=== PATIENT | female | born 1975 | race American Indian/Alaskan Native ===

== ENCOUNTER 2016-12-14 00:16 | Emergency (ER) | payer MEDICAID ==
[2016-12-14 01:30] LABS: Basophils % (Auto) 0.7 % (0.0-1.8); Eosinophils % (Auto) 1.3 % (0.0-4.3); Hematocrit 34.3 % (30.3-42.9); Hemoglobin 11.4 gm/dl (10.1-14.3); Mean Corpuscular HGB Conc 33 % (30-34); Mean Corpuscular Hemoglobin 31 pg (28-32); Mean Corpuscular Volume 91 fl (79-97); Platelet Count 209 K/mm3 (140-440); Red Blood Count 3.75 M/mm3 (3.65-5.03); Red Cell Distribution Width 13.7 % (13.2-15.2); White Blood Count 7.9 K/mm3 (4.5-11.0)
--- NOTE | 2016-12-14 04:52 | Ultrasound Report ---
FINAL REPORT PROCEDURE: US OB \T\lt; = 14 WEEKS FETUS TECHNIQUE: Real-time transabdominal sonography of the uterus, placenta, amniotic fluid, adnexa, and fetus was performed with image documentation. Measurements were obtained to determine age/size. M-mode Doppler was used to document heartbeat. CPT 85485 HISTORY: VAG BLEEDING/ COMPARISON: No prior studies are available for comparison. FINDINGS: There is no intrauterine or ectopic . Uterus measures 10.3 x 5.1 x 5.7 centimeters. The endometrium is thickened at 16 millimeters. There is complex fluid in the endometrial cavity. There is complex fluid in the endocervical canal which could be blood clot. Right ovary measures 2.7 x 1.6 x 2.9 centimeters. Left ovary measures 2.8 x 2.2 x 3 centimeters. There is a 2.5 centimeter left ovarian cyst. IMPRESSION: There is no intrauterine or ectopic . There is complex fluid in the endocervical and endometrial cavity suggesting blood clot.
--- NOTE | 2016-12-14 04:52 | Ultrasound Report ---
FINAL REPORT PROCEDURE: US OB TRANSVAGINAL TECHNIQUE: Real-time transvaginal l sonography of the uterus, placenta, amniotic fluid, adnexa, and fetus was performed with image documentation. Measurements were obtained to determine age/size. M-mode Doppler was used to document heartbeat. HISTORY: VAG BLEEDING/ COMPARISON: No prior studies are available for comparison. FINDINGS: There is no intrauterine or ectopic . Uterus measures 10.3 x 5.1 x 5.7 centimeters. The endometrium is thickened at 16 millimeters. There is complex fluid in the endometrial cavity. There is complex fluid in the endocervical canal which could be blood clot. Right ovary measures 2.7 x 1.6 x 2.9 centimeters. Left ovary measures 2.8 x 2.2 x 3 centimeters. There is a 2.5 centimeter left ovarian cyst. IMPRESSION: There is no intrauterine or ectopic . There is complex fluid in the endocervical and endometrial cavity suggesting blood clot.
--- NOTE | 2016-12-14 04:59 | Emergency Department Report ---
ED Female HPI - General Chief complaint: Vaginal Bleeding Stated complaint: MISCARRIAGE Time Seen by Provider: 12/14/16 04:58 Source: patient, RN notes reviewed Mode of arrival: Ambulatory Limitations: No Limitations - History of Present Illness Initial comments: This is a 41-year-old female who was previously unknown to me. She is 6 , para 5. Last menstrual period is September. Her private senior contracts manager is "[facility]." Patient reports that she was diagnosed with a spontaneous miscarriage 11/27/2016. She was offered surgery versus medication versus watch and wait approach by her senior contracts manager. She chose the latter. She presents to the ER today with lower abdominal cramping and vaginal bleeding. No headache, neck pain, chest pain, shortness of breath, irritative/ obstructive urinary symptoms. No dizziness or lightheadedness. The bleeding is constant. it does not have exacerbating or relieving factors. MD Complaint: vaginal bleeding -: Gradual Location: labia Severity: moderate Quality: cramping Consistency: constant Improves with: none Worsens with: none Are you Now?: Yes Associated Symptoms: vaginal bleeding, abdominal pain - Related Data Sexually active: Yes Allergies Allergy/AdvReac Type Severity Reaction Status Date / Time No Known Allergies Allergy Verified 12/14/16 00:23 ED Review of Systems ROS: Stated complaint: MISCARRIAGE Other details as noted in HPI Constitutional: denies: malaise Eyes: denies: vision change ENT: denies: epistaxis Respiratory: denies: cough Cardiovascular: denies: chest pain Gastrointestinal: abdominal pain Genitourinary: abnormal menses Musculoskeletal: denies: as per HPI Skin: denies: lesions Neurological: denies: weakness Psychiatric: denies: depression ED Past Medical Hx - Past Medical History Previous Medical History?: No - Surgical History Past Surgical History?: No - Social History Smoking Status: Never Smoker Substance Use Type: None ED Physical Exam - General Limitations: No Limitations General appearance: alert, in no apparent distress - Head Head exam: Present: atraumatic, normocephalic - Eye Eye exam: Present: normal appearance, EOMI. Absent: nystagmus - ENT ENT exam: Present: normal exam, normal orophraynx, mucous membranes moist, normal external ear exam - Neck Neck exam: Present: normal inspection, full ROM - Respiratory Respiratory exam: Present: normal lung sounds bilaterally. Absent: respiratory distress, wheezes, rales, rhonchi, stridor, chest wall tenderness, accessory muscle use, decreased breath sounds, prolonged expiratory - Cardiovascular Cardiovascular Exam: Present: regular rate, normal rhythm, normal heart sounds. Absent: systolic murmur, diastolic murmur, rubs, gallop - GI/Abdominal GI/Abdominal exam: Present: soft, normal bowel sounds. Absent: distended, tenderness, guarding, rebound, rigid, pulsatile mass - External exam: Present: normal external exam Speculum exam: Present: normal speculum exam, vaginal bleeding Bi-manual exam: Present: other (escorted by KAYA montaño). Absent: cervical motion tendernes, adnexal tenderness, adnexal mass - Extremities Exam Extremities exam: Present: normal inspection, full ROM, normal capillary refill. Absent: pedal edema, joint swelling, calf tenderness - Back Exam Back exam: Present: normal inspection, full ROM. Absent: tenderness, CVA tenderness (R), CVA tenderness (L), muscle spasm, paraspinal tenderness, vertebral tenderness - Neurological Exam Neurological exam: Present: alert, oriented X3, normal gait, other (Extraocular movements intact. Tongue midline. No facial droop. Facial sensation intact to light touch in the V1, V2, V3 distribution bilaterally. 5 and 5 strength in 4 extremities.. Sensation is intact to light touch in 4 extremities.). Absent : motor sensory deficit - Psychiatric Psychiatric exam: Present: normal affect, normal mood - Skin Skin exam: Present: warm, dry, intact, normal color. Absent: rash ED Course Vital Signs 12/14/16 12/14/16 00:23 05:03 Temperature 98.6 F 98.5 F Pulse Rate 88 91 H Respiratory 20 18 Rate Blood Pressure 122/58 Blood Pressure 103/64 [Left] O2 Sat by Pulse 100 100 Oximetry - Reevaluation(s) Reevaluation #1: 12/14/16 05:24 During gynecologic examination, large clots noted the extruded from the cervical os, these were aggressively suctioned out using a Yankauer suction catheter. ED Medical Decision Making - Lab Data Result diagrams: 12/14/16 01:09 Vital Signs 12/14/16 12/14/16 00:23 05:03 Temperature 98.6 F 98.5 F Pulse Rate 88 91 H Respiratory 20 18 Rate Blood Pressure 122/58 Blood Pressure 103/64 [Left] O2 Sat by Pulse 100 100 Oximetry Lab Results 12/14/16 12/14/16 12/14/16 Range/Units 01:09 01:09 01:09 WBC 7.9 (4.5-11.0) K/mm3 RBC 3.75 (3.65-5.03) M/mm3 Hgb 11.4 (10.1-14.3) gm/dl Hct 34.3 (30.3-42.9) % MCV 91 (79-97) fl MCH 31 (28-32) pg MCHC 33 (30-34) % RDW 13.7 (13.2-15.2) % Plt Count 209 (140-440) K/mm3 Lymph % (Auto) 16.7 (13.4-35.0) % [place] % (Auto) 6.9 (0.0-7.3) % Eos % (Auto) 1.3 (0.0-4.3) % Baso % (Auto) 0.7 (0.0-1.8) % Lymph # 1.3 (1.2-5.4) K/mm3 [place] # 0.5 (0.0-0.8) K/mm3 Eos # 0.1 (0.0-0.4) K/mm3 Baso # 0.1 (0.0-0.1) K/mm3 Seg Neutrophils % 74.4 H (40.0-70.0) % Seg Neutrophils # 5.9 (1.8-7.7) K/mm3 HCG, Quant 1126 H (0-4) mIU/mL Blood Type A POSITIVE Antibody Screen Negative - Radiology Data Radiology results: report reviewed, image reviewed Pelvic ultrasound demonstrates no i intrauterine or ectopic . His complex fluid in the endocervical and endometrial cavity, suggesting blood clot. - Medical Decision Making Differential diagnosis: Inevitable miscarriage Assessment and plan: 41-year-old female who reports sonographically confirmed spontaneous miscarriage earlier on this month, now experiencing the natural history of miscarriage, including bleeding and clots. She is afebrile, with reassuring vital signs, she is Rh+. She will be managed expectantly. She is suitable to follow-up with her outpatient senior contracts manager. Critical care attestation.: If time is entered above; I have spent that time in minutes in the direct care of this critically ill patient, excluding procedure time. ED Disposition Clinical Impression: Miscarriage Disposition: DC-01 TO HOME OR SELFCARE Is pt being admited?: No Does the pt Need Aspirin: No Condition: Stable Instructions: Spontaneous Miscarriage (ED) Additional Instructions: Rest and avoid heavy lifting. Avoid strenuous physical activity. Do not engage in sexual activity until cleared by your senior contracts manager. Follow up with her senior contracts manager within the next week. Return to the ER right away with new pain, worsening pain, migration of pain, fevers, chills, lethargy, irritability , projectile vomiting, bleeding more than 2 pads soaked through and through per hour, dizziness, lightheadedness, passing out. Referrals: PRIMARY CAREMD [Primary Care Provider] - 3-5 Days [facility] [Provider Group] - 3-5 Days
[2016-12-14 05:05] VITALS: BP 103/64
[2016-12-14 06:16] LABS: Bacteria,Urine 1+ /HPF (Negative); Bilirubin,Urine NEG (Negative); Blood,Urine LG (Negative); Ketones,Urine NEG (Negative); Leukocyte Esterase,Urine TR (Negative); Mucus,Urine FEW /HPF; Nitrite,Urine NEG (Negative); Urobilinogen,Urine < 2.0 mg/dL (<2.0)
[2016-12-14 06:18] LABS: RBC,Urine > 182.0 /HPF (0.0-6.0)
== END 2016-12-14 05:40 | disposition home or self-care (01) ==
LOC: ED 00:16
DX: O03.9 Complete or unspecified spontaneous abortion without complication (principal); Z3A.00 Weeks of gestation of pregnancy not specified
CPT/HCPCS: 36415; 76801; 76817; 81001; 84702; 85025; 86850; 86900; 86901; 99284

== ENCOUNTER 2018-04-05 22:56 | Emergency (ER) | payer MEDICAID ==
[2018-04-05 23:42] LABS: Basophils # (Auto) 0.1 K/mm3 (0.0-0.1); Basophils % (Auto) 1.4 % (0.0-1.8); Eosinophils # (Auto) 0.2 K/mm3 (0.0-0.4); Eosinophils % (Auto) 2.4 % (0.0-4.3); Hemoglobin 12.8 gm/dl (10.1-14.3); Lymphocytes # (Auto) 2.4 K/mm3 (1.2-5.4); Lymphocytes % (Auto) 34.7 % (13.4-35.0); Mean Corpuscular HGB Conc 35 % (30-34); Mean Corpuscular Volume 90 fl (79-97); Monocytes # (Auto) 0.6 K/mm3 (0.0-0.8); Monocytes % (Auto) 8.5 % (0.0-7.3); Platelet Count 219 K/mm3 (140-440); Red Blood Count 4.09 M/mm3 (3.65-5.03); Red Cell Distribution Width 13.4 % (13.2-15.2)
--- NOTE | 2018-04-06 00:18 | Emergency Department Report ---
HPI - General Chief Complaint: Vaginal Bleeding Time Seen by Provider: 04/06/18 00:01 - HPI HPI: 42-year-old [place] female presents to the emergency department with the complaint of concern for possible miscarriage. Patient started having some pelvic cramping and brownish vaginal discharge starting earlier today. The cramping pain is mild. She found out shortly after Sherrie that she was from a home test and then a repeat positive test at a clinic. Her last menstrual cycle was February 19. With this she is . She follows with [facility]. She denies any other past medical history. She has not taken anything for her symptoms prior to arrival. ED Past Medical Hx - Past Medical History Previous Medical History?: No - Surgical History Past Surgical History?: No - Social History Smoking Status: Never Smoker Substance Use Type: None ED Review of Systems ROS: Stated complaint: POSSIBLY MISCARRIAGE Other details as noted in HPI Comment: All other systems reviewed and negative Constitutional: denies: chills, fever Eyes: denies: eye pain, eye discharge, vision change ENT: denies: ear pain, throat pain Respiratory: denies: cough, shortness of breath, wheezing Cardiovascular: denies: chest pain, palpitations Gastrointestinal: abdominal pain. denies: nausea, vomiting Genitourinary: discharge. denies: dysuria Musculoskeletal: denies: back pain, arthralgia Skin: denies: rash, lesions Neurological: denies: headache, weakness Physical Exam - Physical Exam Vital Signs: Vital Signs 04/05/18 04/05/18 23:07 23:20 Temperature 98.6 F 98.6 F Pulse Rate 80 78 Respiratory 18 18 Rate Blood Pressure 143/83 Blood Pressure 143/83 [Left] O2 Sat by Pulse 99 99 Oximetry Physical Exam: GENERAL: The patient is well-developed well-nourished. HEENT: Normocephalic. Atraumatic. Patient has moist mucous membranes. EYES: Extraocular motions are intact. NECK: Supple. Trachea is midline. CHEST/LUNGS: Clear to auscultation. There is no respiratory distress noted. HEART/CARDIOVASCULAR: Regular. There is no tachycardia. There is no obvious murmur. ABDOMEN: Abdomen is soft, nontender. Patient has normal bowel sounds. There is no abdominal distention. SKIN: Skin is warm and dry. NEURO: The patient is awake, alert, and oriented. The patient is cooperative. The patient has no focal neurologic deficits. The patient has normal speech. MUSCULOSKELETAL: There is no tenderness or deformity. There is no evidence of acute injury. ED Course Vital Signs 04/05/18 04/05/18 23:07 23:20 Temperature 98.6 F 98.6 F Pulse Rate 80 78 Respiratory 18 18 Rate Blood Pressure 143/83 Blood Pressure 143/83 [Left] O2 Sat by Pulse 99 99 Oximetry - Consultations Consultation #1: I spoke with Dr. Ribeiro, the [facility] personal financial advisor for [facility], and we spoke regarding the patient's presentation, lab values and ultrasound findings. She says that the patient should follow-up in their office no later than Saturday but that there is no further emergent treatment or evaluation necessary. 04/06/18 03:18 ED Medical Decision Making - Lab Data Result diagrams: 04/05/18 23:26 - Radiology Data Radiology results: report reviewed Obstetric ultrasound shows that an intrauterine has not been confirmed an ectopic has not been excluded. Uterus appears normal. Presently there is no evidence of intrauterine . Normal-appearing right and left ovaries. - Medical Decision Making Patient presents with 1 day of some mild pelvic cramping and some brownish discharge. She has a beta hCG of about 1200. Vital signs stable throughout her ED course. Hemoglobin is stable. Ultrasound shows no evidence of intrauterine . I spoke with the [facility] service who has recommended that the patient follow up in their office in the later than Saturday. I discussed the diagnosis of threatened miscarriage with the patient. She will return to the ER with any worsening of her symptoms or any acute distress. - Differential Diagnosis , threatened miscarriage, spontaneous miscarriage, fibroids Critical Care Time: No Critical care attestation.: If time is entered above; I have spent that time in minutes in the direct care of this critically ill patient, excluding procedure time. ED Disposition Clinical Impression: Threatened miscarriage Disposition: DC-01 TO HOME OR SELFCARE Is pt being admited?: No Condition: Stable Instructions: Threatened Miscarriage (ED) Additional Instructions: Please follow up with [facility] by Saturday. Return to the emergency Department with any worsening of your symptoms including any heavy vaginal bleeding, sharp intense abdominal pain, or with any acute distress. Referrals: [facility] [Provider Group] - 3-5 Days Time of Disposition: 02:38
--- NOTE | 2018-04-06 01:15 | Ultrasound Report ---
FINAL REPORT EXAM: US OB <= 14 WEEKS FETUS HISTORY: vaginal bleeding quantitative beta HCG level 1,243 TECHNIQUE: Real-time sonography was performed of the pelvis transabdominally. Images are submitted f or interpretation. PRIORS: None. FINDINGS: The uterus appears normal measuring 10.0 x 4.5 x 6.2 cm. The endometrial stripe appears normal measur ing 1.3 cm. Presently there is no evidence of IUP. The right ovary appears normal measuring 2.6 x 1.9 x 2.4 cm. The left ovary appears normal measuring 3.3 x 2.7 x 1.3 cm. There is no free pelvic fluid. IMPRESSION: An intrauterine has not been confirmed and ectopic has not been excluded. Close c linical follow-up, serial quantitative beta HCG levels and follow-up ultrasound recommended.
--- NOTE | 2018-04-06 01:17 | Ultrasound Report ---
FINAL REPORT EXAM: US OB TRANSVAGINAL HISTORY: vaginal bleeding quantitative beta HCG level 1,243 TECHNIQUE: Real-time sonography was performed of the pelvis endovaginally. Images are submitted for interpretation. PRIORS: None. FINDINGS: The uterus appears normal measuring 10.0 x 4.5 x 6.2 cm. The endometrial stripe appears normal measur ing 1.3 cm. Presently there is no evidence of IUP. The right ovary appears normal measuring 2.6 x 1.9 x 2.4 cm. The left ovary appears normal measuring 3.3 x 2.7 x 1.3 cm. IMPRESSION: An intrauterine has not been confirmed and ectopic has not been excluded. Close c linical follow-up, serial quantitative beta HCG levels and follow-up ultrasound recommended.
[2018-04-06 01:52] LABS: Bilirubin,Urine NEG (Negative); Blood,Urine LG (Negative); Color,Urine Red (Yellow); Mucus,Urine FEW /HPF; Protein,Urine <15 mg/dL mg/dL (Negative); Urobilinogen,Urine < 2.0 mg/dL (<2.0)
[2018-04-06 02:59] VITALS: BP 132/78
== END 2018-04-06 03:00 | disposition home or self-care (01) ==
LOC: ED 22:56
DX: O20.0 Threatened abortion (principal); Z3A.01 Less than 8 weeks gestation of pregnancy
CPT/HCPCS: 36415; 76801; 76817; 81001; 84702; 85025; 86850; 86900; 86901

== ENCOUNTER 2020-07-19 20:12 | Emergency (ER) | payer MEDICAID ==
[2020-07-19] MEDS ORDERED: NEOMY 3.5 MG/BACIT 400 UNITS/POLY B 5000 UNITS/GM OINT PACKET TP ONE (20:59)
[2020-07-19] MEDS ORDERED: TETANUS,DIPH,PERTUSS(ACELL) VACCINE 0.5 ML SYRINGE IM ONE (20:59)
--- NOTE | 2020-07-19 21:04 | Emergency Department Report ---
ED General Adult HPI - General Chief complaint: Wound/Laceration Stated complaint: LACERATION TO RIGHT INDEX FINGER Time Seen by Provider: 07/19/20 20:53 Source: patient Mode of arrival: Ambulatory Limitations: No Limitations - History of Present Illness Initial comments: 45-year-old [id number] female patient presents to the emergency department with complaints of an accidental laceration to her right index finger occurring yesterday. Patient states she was attempting to use a can shear helper when she accidentally cut her finger. Cannot recall last tetanus immunization. Denies numbness, paresthesias, foreign body sensation. Denies all other complaints at this time. - Related Data Allergies Allergy/AdvReac Type Severity Reaction Status Date / Time No Known Allergies Allergy Verified 12/14/16 00:23 ED Review of Systems ROS: Stated complaint: LACERATION TO RIGHT INDEX FINGER Other details as noted in HPI Other: GENERAL: Negative for fever. CARDIOVASCULAR: Negative for chest pain. PULMONARY: Negative for shortness of breath. GASTROINTESTINAL: Negative for abdominal pain. MUSCULOSKELETAL: Negative for back pain. NEUROLOGICAL: Negative for headache. INTEGUMENTARY: Positive for laceration ED Past Medical Hx - Past Medical History Previous Medical History?: No - Surgical History Past Surgical History?: No - Social History Smoking Status: Never Smoker Substance Use Type: None ED Physical Exam - General Limitations: No Limitations - Other Other exam information: General: Awake, appropriately interactive, no acute distress. Neck: Supple. Full range of motion intact. Cardiovascular: Normal peripheral perfusion. Pulmonary: No respiratory distress. Patient is speaking normally without use of accessory muscles. Skin: Flap-like laceration noted to the volar aspect of the distal right index finger involving skin and subcutaneous tissue. Good hemostasis. Wound does not appear grossly contaminated. There is no nail involvement. No foreign body visualized or palpated. Distal neurovascular and motor/sensory function intact. Neurological: No facial asymmetry. Speech is clear. Follows commands. Patient is alert and oriented. Musculoskeletal: Moves all four extremities spontaneously with normal range of motion. Psych: Cooperative. Appropriate mood and affect. ED Medical Decision Making - Medical Decision Making Patient presents emergency department with complaints of a laceration to her right index finger occurring >24 hours ago. She is not a candidate for primary closure due to delayed presentation. Tetanus updated. Pressure dressing applied. Patient will be discharged home to continue topical antibiotics and follow-up with primary care provider as needed. Emphasized the importance of changing dressing daily and applying the dressing in such a way that the finger will remain held in extension to promote wound healing. Patient expressed understanding and is agreeable to plan of care. Wound care precautions discussed. Strict precautions provided. Critical care attestation.: If time is entered above; I have spent that time in minutes in the direct care of this critically ill patient, excluding procedure time. ED Disposition Clinical Impression: Laceration of right index finger Qualifiers: Encounter type: initial encounter Damage to nail status: without damage Foreign body presence: without foreign body Qualified Code(s): S61.210A - Laceration without foreign body of right index finger without damage to nail, initial encounter Disposition: TO HOME OR SELFCARE Is pt being admited?: No Does the pt Need Aspirin: No Condition: Stable Instructions: Laceration Care, Adult Additional Instructions: Apply antibiotic ointment to affected area 3 times daily. Keep wound clean and covered. Change dressing daily. Refrain from bending the finger as much as possible; keeping the finger straight will help promote healing. Follow-up with primary care provider this week. Call tomorrow to schedule an appointment. See referral information below. Return to the emergency department immediately for new or worsening symptoms. Specifically, return to the emergency department immediately for fever, worsening pain, swelling, drainage, loss of sensation, or any other concerns. Referrals: ARNALDO KIDD MD [Staff Physician] - 3-5 Days [facility] [Outside] - 3-5 Days [facility] [Outside] - 3-5 Days Time of Disposition: 21:04
== END 2020-07-19 22:03 | disposition home or self-care (01) ==
LOC: ED 20:12
DX: S61.210A Laceration without foreign body of right index finger without damage to nail, initial encounter (principal); W45.8XXA Other foreign body or object entering through skin, initial encounter; Y93.89 Activity, other specified; Y92.89 Other specified places as the place of occurrence of the external cause; Y99.8 Other external cause status
CPT/HCPCS: 90471; 90715; 99282; A6250